=== PATIENT | female | born 1970 | race Hispanic/Latino ===

== ENCOUNTER 2021-09-27 13:37 | Emergency (ER) | payer OTHER, SELFPAY ==
[~2021-09-27 13:37] MED LIST: Calcium Chloride 1 GM/10 ML Abboject SYRINGE ONE; EPINEPHrine 1 MG/10 ML Abboject SYRINGE ONE; Magnesium 5 GM/10 ML Abboject SYRINGE ONE; Sodium Bicarb 50 MEQ/50 ML Abboject 8.4% SYRINGE ONE
[2021-09-27] MEDS ORDERED: EPINEPHrine 1 MG/ML AMP ONE (13:47)
[2021-09-27] MEDS ORDERED: Norepinephrine 8 MG/0.9% NS 250 ML ONE (14:10)
[2021-09-27] MEDS ORDERED: Tenecteplase 50 MG - STEMI KIT ONE (18:00)
[2021-09-28 07:04] LABS: ALV-art Gradient 561.075 mmHg (0-20); Base Excess (BEa) -25.4 mEq/L (-2.0 to +3.0); CO2 Tension 73.3 mmHg (35.0-45.0); Calcium, Ionized (arterial) 1.24 mmol/L (1.12-1.30); Carboxyhemoglobin (COHb) 1.3 gm% (0.0-3.0); Hemoglobin (Hb) 11.3 g/dL (12.0-16.0); O2 Tension (PaO2), arterial 60.3 mmHg (80.0-100.0); Potassium - ABG Lab 4.4 mmol/L (3.70-5.30); Puncture Site Other Site; RapidComm Collect By LAB; pH, Arterial 6.75 (7.35-7.45)
== END 2021-09-27 14:15 | disposition expired ==
LOC: CJX 13:37 → CSHERS 14:15
DX: I46.9 Cardiac arrest, cause unspecified (principal); J96.01 Acute respiratory failure with hypoxia; E87.2 Acidosis
CPT/HCPCS: 82805; 93005; 94002; J0171; J3101; J3475